=== PATIENT | male | born 2000 | race Caucasian/White ===

== ENCOUNTER 2021-02-20 20:26 | Emergency (ER) | payer MEDICAID ==
[~2021-02-20] VITALS: Ht 170.2 cm; Wt 75.7 kg
[2021-02-20 20:53] LABS: Urine Bacteria FEW /hpf (None Seen); Urine Blood Negative /uL (Negative); Urine Mucus FEW (None Seen); Urine Specific Gravity 1.023 (1.001-1.035); Urine Sperm PRESENT /hpf (None Seen); Urine WBC 1 /hpf (0 - 3)
[2021-02-20 21:08] LABS: Amphetamine Screen, Urine NEGATIVE (NEGATIVE); Barbiturate Scree,Urine NEGATIVE (NEGATIVE); Benzodiazephine Screen, Urine NEGATIVE (NEGATIVE); Cannabinoid Screen, Urine NEGATIVE (NEGATIVE); Cocaine Screen, Urine NEGATIVE (NEGATIVE); Opiate Scree,Urine NEGATIVE (NEGATIVE); Phencyclidine Screen, Urine NEGATIVE (NEGATIVE)
[2021-02-20 22:03] LABS: Basophils # (auto) 0.1 10 ^3/uL (0-0.2); Basophils % (auto) 0.9 % (0.0-2.0); Eosinophils # (auto) 0.6 10 ^3/uL (0-0.8); Eosinophils % (auto) 7.2 % (0.0-7.0); Hematocrit 40.2 % (41.0-53.0); Hemoglobin 14.3 g/dL (13.5-17.5); Lymphocytes # (auto) 1.8 10 ^3/uL (0.4-5.4); Lymphocytes % (auto) 22.5 % (10.0-50.0); Mean Corpuscular Hemoglobin 31.8 pg (28.0-32.0); Mean Corpuscular Hgb Conc. 35.4 g/dL (32.0-36.0); Mean Corpuscular Volume 89.7 fL (80.0-100.0); Monocytes # (auto) 0.7 10 ^3/uL (0-1.3); Monocytes % (auto) 8.8 % (0.0-12.0); Neutrophils # (auto) 4.9 10 ^3/uL (1.6-8.6); Neutrophils % (auto) 60.6 % (37.0-80.0); Nucleated Red Blood Cells % 0.2 %; Red Blood Cells 4.48 10^6/uL (4.5-5.90); Red Cell Distribution Width 13.2 % (11.8-14.3); White Blood Cell 8.1 10^3/uL (4.4-10.8)
[2021-02-20 22:24] LABS: Albumin 3.8 g/dL (3.4-5.0); BUN/Creatinine Ratio 13.5; Calcium 9.2 mg/dL (8.5-10.1); Potassium 3.7 mmol/L (3.5-5.1)
[2021-02-20 22:45] VITALS: BP 115/75
== END 2021-02-20 22:48 | disposition home or self-care (01) ==
LOC: ER 20:26
DX: R10.31 Right lower quadrant pain (principal); R10.32 Left lower quadrant pain; R11.2 Nausea with vomiting, unspecified; R16.1 Splenomegaly, not elsewhere classified; Z91.018 Allergy to other foods
CPT/HCPCS: 36415; 74176; 80053; 80307; 81001; 85025

== ENCOUNTER 2021-05-14 11:47 | Emergency (ER) | payer MEDICAID ==
[~2021-05-14] VITALS: Ht 177.8 cm; Wt 81.6 kg
[2021-05-14] MEDS ORDERED: IBUPROFEN 800 MG TAB PO ONE (13:00)
[2021-05-14 14:03] VITALS: BP 131/90
== END 2021-05-14 14:08 | disposition home or self-care (01) ==
LOC: ER 11:47 → EDUNIT# 11:47 → EDBD 11:47 → ER 14:03
DX: S20.211A Contusion of right front wall of thorax, initial encounter (principal); V43.52XA Car driver injured in collision with other type car in traffic accident, initial encounter; Y93.89 Activity, other specified; Y92.488 Other paved roadways as the place of occurrence of the external cause; Y99.8 Other external cause status
CPT/HCPCS: 71101

== ENCOUNTER 2025-03-22 23:15 | Emergency (ER) | payer SELFPAY ==
[~2025-03-22] VITALS: Ht 172.7 cm; Wt 70.5 kg
--- NOTE | 2025-03-22 23:32 | ED.PDOC ---
Psychiatric HPI Comments 24 year Old male who came to ER via EMS for suicidal attempt. Patient notes history of bipolar and suicide attempt ( cutting wrist), he admits that 45 minutes prior to arrival he took 4 tablets of olanzapine attempt to harm himself. States 5 minutes towards he nauseated and he vomited. With the pills in his vomitus. Patient denies any hallucinations, auditory and visual. At this time patient states he just feels tired. REVIEW OF SYSTEMS: General: No fever, no chills, or fatigue HEENT: No sore throat, no earache, no congestion, no neck pain. Cardiac: No chest pain. No palpitations. Lungs: No shortness of breath, no cough. GI: No nausea, no vomiting, no diarrhea, no constipation, no abdominal pain : No dysuria, frequency, or urgency. No hematuria. Musculoskeletal: No joint pain , no joint swelling, no extremity edema. Skin: No rash, no itching. Neuro: No headache, no dizziness, no weakness (+) suicidal PHYSICAL EXAM: General: Awake, alert and oriented. No acute distress. Skin: Skin in warm, dry and intact without rashes or lesions. HEENT: The head is normocephalic and atraumatic. Conjunctivae are clear without exudates or hemorrhage. Sclera is non-icteric. Neck: Normal range of motion. No JVD. Cardiac: Regular rate Respiratory: No signs of respiratory distress. No Stridor. Extremities: Upper and lower extremities are atraumatic in appearance without deformity. Neurological: The patient is awake, alert and oriented to person, place, and time with normal speech. Speech is clear. There is no facial asymmetry. Psychiatric: Appropriate mood and affect. Good judgement and insight. Chief Complaint: Suicidal Time Seen by MD: 23:31 Primary Care Provider: NONE Reviewed Notes: Nurses Notes Information Source: Patient Mode of Arrival: EMS Severity: Unable to Care for Self, Unable to Control Self Severity of Pain: Moderate Severity of Mental Status: Moderate Severity of Symptoms: Moderate Timing: Minutes Duration: Since onset Presents with: Anxiety, Unclear Thinking, Suicidal Ideation Attempt: Ingestion Ingestion: Intentional, Multiple, Ingestion Observed, Drug(s) Ingested (4 tablets of Olanzapine) Circumstance: Medical Clearance Stressors: Relationships Associated signs and symptoms: Depression, Hopeless, Anxiety Past Medical History PAST MEDICAL HISTORY: Asthma, Denies Past Medical History (Other): Bipolar disorder, history of suicide attempt (cutting) Surgical History: Denies all surgeries Family History Family History: Reviewed,noncontributory to illness Social History Smoker: Non-Smoker Alcohol: Denies ETOH Use Drugs: Denies Drug Use Lives In: Home EKG EKG : Pulse Rate (adult): 68 Cardiac Rhythm: NSR Comments QTC within normal limits. Was a procedure done? Was a procedure done?: No Psych Differential Dx Psych. Differential Dx: Bipolar Disorder, Depression, Hopeless, Suicidal Suicidal Differential Dx: Anxiety, Bipolar Disorder, Depression X-Ray, Labs, Meds, VS Vital Signs Date Time Temp Pulse Resp B/P (MAP) Pulse Ox O2 Delivery O2 Flow Rate FiO2 03/23/25 01:17 68 03/23/25 01:13 68 03/22/25 23:20 98.7 98 18 113/69 99 98.7 Lab Test 03/23/25 00:30 Range/Units White Blood Count 7.2 4.4-10.8 10^3/uL Red Blood Count 4.72 4.5-5.90 10^6/uL Hemoglobin 15.1 13.5-17.5 g/dL Hematocrit 42.2 41.0-53.0 % Mean Corpuscular Volume 89.5 80.0-100.0 fL Mean Corpuscular Hemoglobin 32.0 28.0-32.0 pg Mean Corpuscular Hemoglobin Concent 35.7 32.0-36.0 g/dL Red Cell Distribution Width 13.1 11.8-14.3 % Platelet Count 223 140-450 10^3/uL Mean Platelet Volume 8.5 6.9-10.8 fL Neutrophils (%) (Auto) 54.8 37.0-80.0 % Lymphocytes (%) (Auto) 26.2 10.0-50.0 % Monocytes (%) (Auto) 7.3 0.0-12.0 % Eosinophils (%) (Auto) 9.9 H 0.0-7.0 % Basophils (%) (Auto) 1.8 0.0-2.0 % Neutrophils # (Auto) 3.9 1.6-8.6 10 ^3/uL Lymphocytes # (Auto) 1.9 0.4-5.4 10 ^3/uL Monocytes # (Auto) 0.5 0-1.3 10 ^3/uL Eosinophils # (Auto) 0.7 0-0.8 10 ^3/uL Basophils # (Auto) 0.1 0-0.2 10 ^3/uL Nucleated Red Blood Cells 0.1 % Sodium Level 142 136-145 mmol/L Potassium Level 4.1 3.5-5.1 mmol/L Chloride Level 107 98-107 mmol/L Carbon Dioxide Level 25 20-31 mmol/L Anion Gap 10 5-15 Blood Urea Nitrogen 12 9-23 mg/dL Creatinine 1.10 0.700-1.30 mg/dL Glomerular Filtration Rate Calc 97 >90 mL/min BUN/Creatinine Ratio 10.9 10.0-20.0 Serum Glucose 106 74-106 mg/dL Calcium Level 9.5 8.7-10.4 mg/dL Plasma/Serum Blood Alcohol < 3.0 <10 mg/dL Time of 1ST Reevaluation: 23:27 Reevaluation 1ST: Unchanged Patient Education/Counseling: Need For Follow Up Family Education/Counseling: No Family Present Departure 1 Departure Time of Disposition: 04:38 Impression: Primary Impression: Intentional overdose Additional Impressions: Suicidal ideation Depression Bipolar disorder Disposition: 01 HOME / SELF CARE / HOMELESS Condition: Stable Additional Instructions: ED DISCHARGE INSTRUCTIONS Instructions: Please read all instructions provided in this packet carefully. Although you have been discharged from the Emergency Department, this does not mean that you have a "clean bill of health". No definitive diagnosis for your symptoms has been made today. It is possible that you are in the process of developing a serious illness. This is why you must return to the ED without fail if any new or worsening symptoms (especially if your symptoms include chest pain, trouble breathing, abdominal pain, fever, headache, confusion, trouble seeing, or trouble walking) It is also very important that you see a primary care provider (PCP) within the next 1-3 days to follow up. Follow up for mental health treatment as recommended by the psychiatrist. If you are unable to get an appointment, return to the ED for re-evaluation. Suicidal Thoughts and Behavior: Care Instructions Overview You have been seen by a doctor because you've had thoughts of suicide or have harmed yourself. Your doctor and support team want to help keep you safe. Your team may include a rehabilitation case coordinator, a social media marketing analyst, and a counselor. People often think about suicide because they feel hopeless, helpless, or worthless. These feelings may come from having a mental health problem, such as depression. These problems can be treated. It's important to remember that there are people who care about you. Your doctor and support team take your pain very seriously, and they want to help. Treatment and close follow-up care can help you feel better. Follow-up care is a rodríguez part of your treatment and safety. Be sure to make and go to all appointments, and call your doctor if you are having problems. It's also a good idea to know your test results and keep a list of the medicines you take. How can you care for yourself at home? Where to get help 24 hours a day, 7 days a week If you or someone you know talks about suicide, self-harm, a mental health crisis, a substance use crisis, or any other kind of emotional distress, get help right away. You can: Call the Suicide and Crisis Lifeline at 988. Call 1-551-490-TALK ( ). Text HOME to 933224 to access the Crisis Text Line. Consider saving these numbers in your phone. Go to [employer] for more information or to chat online. Other things you can do Talk to someone. Be open about your feelings. Reach out to a trusted family member or friend, your doctor, or a counselor. Attend all counseling sessions recommended by your doctor. Make a suicide safety plan. This is a set of steps you can take when you feel suicidal. It includes your warning signs, coping strategies, and people you can ask for support. It's best to work with a therapist to make your plan. Ask someone to remove and store any guns, pills, or other means of suicide. Avoid alcohol and drug use. Be safe with medicines. Take your medicines exactly as prescribed. Call your doctor if you think you are having a problem with your medicine. When should you call for help? Call 911 anytime you think you may need emergency care. For example, call if: You feel you cannot stop from hurting yourself or someone else. Where to get help 24 hours a day, 7 days a week If you or someone you know talks about suicide, self-harm, a mental health crisis, a substance use crisis, or any other kind of emotional distress, get help right away. You can: Call the Suicide and Crisis Lifeline at 988. Call 7-226-144-TALK ( ). Text HOME to 027238 to access the Crisis Text Line. Consider saving these numbers in your phone. Go to [employer] for more information or to chat online. Call your doctor now or seek immediate medical care if: You have one or more warning signs of suicide. For example, call if: You feel like giving away your possessions. You use illegal drugs or drink alcohol heavily. You talk or write about . This may include writing suicide notes and talking about guns, knives, or pills. You start to spend a lot of time alone or spend more time alone than usual. You hear voices. You start acting in an aggressive way that's not normal for you. Watch closely for changes in your health, and be sure to contact your doctor if you have any problems. Credits for Suicidal Thoughts and Behavior: Care Instructions Current as of: January 31, 2024 Author: [employer] Staff Clinical Review Board All [facility] education is reviewed by a team that includes physicians, nurses, advanced practitioners, registered dieticians, and other healthcare professionals. Comments 24-year-old male intentionally took extra olanzapine tablets. Patient was evaluated by Psychiatry and felt stable for discharge home with no 5150 hold necessary. Poison control was consulted, no prolonged observation necessary due to low dose of olanzapine ingested. Patient felt stable for discharge home. He remained awake, alert and oriented during the ED observation. Critical Care Note Critical Care Time?: No Stability Stability form required: No Heart Score Heart Score: Heart Score Response (Comments) Value History N/A 0 EKG N/A 0 Age N/A 0 Risk Factors N/A 0 Troponin N/A 0 Total 0 I personally scribed for MYRA SUNSHINE MD ([email or web address]) on 03/22/25 at 23:32. Electronically submitted by Neal Stanford ([employer]). I personally scribed for MYRA SUNSHINE MD ([email or web address]) on 03/23/25 at 01:17. Electronically submitted by Neal Stanford ([employer]). MYRA SUNSHINE MD Mar 22, 2025 23:32
[2025-03-23 00:51] LABS: Hematocrit 42.2 % (41.0-53.0); Hemoglobin 15.1 g/dL (13.5-17.5); Mean Corpuscular Hemoglobin 32.0 pg (28.0-32.0); Mean Corpuscular Volume 89.5 fL (80.0-100.0); Nucleated Red Blood Cells % 0.1 %
--- NOTE | 2025-03-23 01:15 | ECG ---
[facility] Test Date: 2025-03-23 Test Time: 01:13:37 Pat Name: MARIO ALBERTO AMEZQUITA Department: ED Room: Gender: M Beater Head: WING : 2000 Requested By: MYRA SUNSHINE Order Number: [id number] Reading MD: Edmar Velázquez Measurements Intervals [place] Rate: 68 P: -15 CT: 151 QRS: 53 QRSD: 97 T: 29 QT: 375 QTc: 399 Interpretive Statements Sinus rhythm Electronically Signed On 03-24-2025 19:17:58 PDT by Edmar Velázquez Please click the below link to view image of tracing.
[2025-03-23 01:27] LABS: Potassium 4.1 mmol/L (3.5-5.1); Sodium 142 mmol/L (136-145)
[2025-03-23 01:30] LABS: Carbon Dioxide 25 mmol/L (20-31)
[2025-03-23 01:31] LABS: Calcium 9.5 mg/dL (8.7-10.4)
[2025-03-23 01:35] LABS: BUN/Creatinine Ratio 10.9 (10.0-20.0); Blood Urea Nitrogen 12 mg/dL (9-23)
[2025-03-23 01:36] LABS: Anion Gap 10 (5-15); Chloride 107 mmol/L (98-107); Glucose 106 mg/dL (74-106)
--- NOTE | 2025-03-23 03:45 | DVHINCON2 ---
Date of Service if different f: Mar 23, 2025 Time of Service: 03:39 Consult Consult Note PSYCHIATRY ED NEW CONSULT HPI: 24 yo pt with PPH of depression and bipolar presents to ED BIBA for intentional drug OD of 4 tabs of olanzapine 5 mg. Psychiatry consulted for safety evaluation and recommendations in context of current presentation Pt reports "my parents keep putting me down about not having a job and makes me feel upset and angry so i took those pills to get some sympathy from them so they are not so critical of me". Pt states he intentionally ingested 4 tabs of olanzapine 5 mg but subsequently intentionally threw up several mins after with pills in vomitus Pt adamantly denies ingestion as suicide attempt/gesture or intention to self harm. Pt admits ingestion, although intentional, was due to difficulty controlling emotions and unhealthy coping mechanism related to argument/frustration with parents. Pt does express some remorse/regret for ingestion I am not going to do it again Currently denies depressed mood, hopelessness, helplessness, isolation, negative thoughts, or anhedonia. Denies anxiety/panic/OCD/PTSD symptoms. Also denies AVH/paranoia/catatonic/perceptual disturbances. Sleep/appetite/energy/conc relatively WNL. Adamantly denies SI/HI. No overt manic, psychotic, MDD, cognitive, dissociative, panic, OCD, PTSD, or somatic symptoms noted. Overall appears future oriented/goal directed. Denies acute psychosocial stressors although describes ongoing r/s strains with parents Does have active outpt MH services established at this time (both psych iatry/therapy services) with upcoming appts next month Currently rx'd olanzapine 5 mg qhs and lexapro 20 mg qd, overall med compliant with modest therapeutic effects RON hx: Denies ETOH, THC or IDU SH: Single, no children, unemployed, lives with parents, some support system noted (immediate family). Unknown trauma hx FH: Denies FH of psych hospitalizations, suicide attempts, or completed suicides PMH: No acute medical/chronic pain issues, hx of seizures/TBI, HIV/hep C, or recent head injuries, NKDA Some hx of SI/SIB via superficial cutting several years ago resulting in one prior psych hospitalization. No hx of genuine SA/PSG/5150 holds. Denies history of violence, aggression, or assaultive behaviors. Denies recent hx of impulsivity, attention seeking behaviors, anger outbursts, emotional dysregulation, mood reactivity,or engaging in risky/reckless behaviors. Denies any legal problems. Does not have access to firearms Currently denies SI/HI/AVH. Identifies self/family as PPF. No acute safety concerns noted during encounter MSE: General Appearance/Behavior: Alert/awake; appears stated age, fair grooming/hygiene; calm/polite and cooperative, fair eye contact, no PMA/PMR Speech: coherent, rrr Thought Process: L/L/GD Thought Content: Abnormal Thoughts/Perceptions:denies dissociative symptoms Homicidality / Violent Thoughts: adamantly denies HI Suicidality: adamantly denies SI Hallucinations: denies AVTH Delusions: denies paranoia, persecutory, or grandiose delusions Obsessions /compulsions: None Judgment/Insight: improved/fair Mood & Affect: "better" with mood-congruent, somewhat restricted/appropriate Orientation: oriented x 3 Attention/Concentration:appears intact Cognition: grossly intact Assessment: 24 yo pt with PPH of depression and bipolar presents to ED BIBA for intentional drug OD of 4 tabs of olanzapine 5 mg Currently denies SI/HI/AVH. Linear and appears future oriented/goal directed in thought with improved/fair J/I. Identifies several protective factors including a desire to live, family support, seeking employment, etc. Pt medically cleared Pt adamantly denies ingestion as suicide attempt/gesture or intention to self harm. Pt admits ingestion, although intentional, was due to difficulty controlling emotions and unhealthy coping mechanism related to argument/frustration with parents Does not presently show any signs of immediate danger to self/others or GD that would [id number] or involuntary psych admission. However offered voluntary psych hospitalization but pt declined.Also declined further ED observation/reevaluation. No acute safety concerns noted. Acute suicide/violence risk appears nonexistent to relatively low Pts symptoms should be managed safely in an outpatient setting - pt currently does have psychiatrist/therapist out in community and plans to followup over next several weeks for ongoing med management/psychotx Currently rx'd olanzapine 5 mg qhs and lexapro 20 mg qd. No indication to change current med regimen Primary Diagnosis: Adjustment disorder with mixed emotions and doc. Mood disorder unspecified. Plan: Does not warrant involuntary inpatient psychiatric hospitalization or 5150 hold No acute safety concerns Pt can be safely discharged back to current residence Resume above current outpatient psychotropics No med changes or additional meds needed at this time Supportive tx provided, discussed safety plan with pt Encouraged mindfulness techniques (reading, walking, meditation, journaling, exercise, deep breathing) during times of stress rather than engage in SIB Pt plans to f/u with outpatient MH providers over next several weeks for ongoing therapy/med management Encouraged f/u with PCP for routine medical/preventive care Instructed pt to call/text [phone] or return to ED if MH symptoms worsen or new onset SI/HI upon discharge Pt verbalized understanding and is receptive to above tx plan This case was discussed with ED nurse/provider and all parties in agreement with above tx plan Domenic Lagunas MD Plan discussed with: Patient DOMENIC LAGUNAS MD Mar 23, 2025 03:45
[2025-03-23 04:45] VITALS: BP 118/70; PULSE 96; RESP 18; TEMP 98.9; O2SAT 100
[2025-03-23] MEDS: MAALOX PLUS or MAALOX 30 ML PO ONE (05:06)
== END 2025-03-23 05:03 | disposition home or self-care (01) ==
LOC: EDBD 23:15 → ER 23:15 → EDUNIT# 23:15 → ER 03-23 05:03
DX: T50.902A Poisoning by unspecified drugs, medicaments and biological substances, intentional self-harm, initial encounter (principal); R45.851 Suicidal ideations; F31.9 Bipolar disorder, unspecified; F41.9 Anxiety disorder, unspecified; Z79.899 Other long term (current) drug therapy; Y92.89 Other specified places as the place of occurrence of the external cause
CPT/HCPCS: 36415; 80048; 80320; 85025; 93005